=== PATIENT | female | born 1950 | race Caucasian/White ===

== ENCOUNTER 2017-07-23 14:21 | Outpatient (CLI) | payer BC ==
--- NOTE | 2017-07-23 17:20 | RAD ---
CERVICAL SPINE: 07/23/17 Four views. HISTORY: Cervical disc degeneration. Neck pain. Followup surgery. Anterior plate and screws transfix C6-7 with interbody implant. Posterior alignment is preserved. Th ere are mild degenerative changes at the other levels. No significant change from 06/02/17. IMPRESSION: Stable postoperative changes of cervical spine. POS: [facility]
== END 2017-07-23 14:22 | disposition home or self-care (01) ==
LOC: TBSIIMAG 14:21
PROVIDERS: ATTEND Neurological Surgery
DX: M50.30 Other cervical disc degeneration, unspecified cervical region (principal); Z98.1 Arthrodesis status
CPT/HCPCS: 72040

== ENCOUNTER 2017-08-11 04:25 | Emergency (ER) | payer BC, OTHER ==
[2017-08-11] MEDS ORDERED: Ondansetron HCl/PF 4 MG/2 ML Vial ONE (04:44)
[2017-08-11 05:00] LABS: #Lymphocytes 0.6 thou/uL (1.20-3.40); #Monocytes 0.4 thou/uL (0.11-0.59); #Neutrophils 15.6 thou/uL (1.40-6.50); %Basophils 0.1 % (0.0-1.0); %Eosinophils 0.3 % (0.0-10.0); %Lymphocytes 3.6 % (21.0-51.0); %Monocytes 2.6 % (0.0-10.0); Hematocrit 43.3 % (36.0-47.0); Mean Platelet Volume 7.2 fL (7.4-10.4); Red Blood Cell (RBC) Count 4.57 mill/uL (4.20-5.40); White Blood Cell (WBC) Count 16.7 thou/uL (4.8-10.8)
[2017-08-11 05:17] LABS: ALT (SGPT) 19 U/L (8-55); AST (SGOT) 21 U/L (5-34); Alkaline Phosphatase 105 U/L (40-150); Anion Gap 19 mmol/L (10-20); BUN (Urea Nitrogen) 18 mg/dL (9.8-20.1); Calc. Creatinine Clearance 0 mL/min (70-130); Calcium 9.9 mg/dL (7.8-10.44); Carbon Dioxide 20 mmol/L (23-31); Chloride 103 mmol/L (98-107); Estimated GFR-MDRD 72; Globulin 3.8 g/dL (2.4-3.5); Protein, Total 8.4 g/dL (6.0-8.3)
[2017-08-11 07:49] LABS: Bilirubin Negative (Negative); Blood, Urine Negative (Negative); Glucose, Urine (Dipstick) Negative (Negative); Ketone, Urine Negative (Negative); Nitrite Negative (Negative); Protein, Urine (Dipstick) Negative (Neg-Trace); Urobilinogen 0.2 mg/dL (0.2-1.0)
[2017-08-11] MEDS ORDERED: Acetaminophen 500 MG TAB ONE (09:02)
[2017-08-11] MEDS ORDERED: Ondansetron ODT 4 MG TAB ONE (09:10)
== END 2017-08-11 09:05 | disposition home or self-care (01) ==
LOC: ERS 04:25
DX: R11.2 Nausea with vomiting, unspecified (principal); R19.7 Diarrhea, unspecified
CPT/HCPCS: 36415; 80053; 81003; 85025; 93005; 96361; 96374; J2405; Q0162

== ENCOUNTER 2018-12-03 08:33 | Outpatient (CLI) | payer MEDICARE, BC, OTHER ==
--- NOTE | 2018-12-03 09:39 | RAD ---
CERVICAL SPINE FOUR VIEWS: Date: 12-03-18 Comparison: 07-23-17 History: Neck pain with numbness in the left hand, prior cervical spine fusion. FINDINGS: Images include frontal, lateral, open mouth odontoid view, and swimmer's lateral views. Anterior discectomy and fusion hardware noted at C6-7. Post-operative clips overlie the right aspect of the neck. Open mouth odontoid view demonstrates a normal appearing dens and C1-2 articulation. Mild degenerativ e change noted at the atlantoaxial interspace. Mild disc space narrowing and anterior osteophyte form ation noted at C4-5 and C5-6, similar when compared to prior imaging. No anterolisthesis or retrolist hesis. No prevertebral soft tissue swelling. IMPRESSION: Stable post-operative and degenerative changes of the cervical spine as described above. POS: [facility]
--- NOTE | 2018-12-03 12:14 | MRI ---
MRI CERVICAL SPINE WITHOUT CONTRAST: HISTORY: Cervical fusion at C6-C7. Cervical radiculopathy. COMPARISON: None. TECHNIQUE: Cervical spine MRI is performed without intravenous Gadolinium administration. Multisequential, mult iplanar imaging is performed. FINDINGS: Limited evaluation of C6 and C7 vertebral bodies due to metallic susceptibility artifact from fusion hardware. The remainder of the cervical vertebrae have appropriate T1 marrow signal intensity. No e vidence of fracture. No significant STIR hyperintensity to suggest vertebral body edema or ligamento us injury. Straightening of the cervical lordosis is likely positional. Visualized brain parenchyma , cervicomedullary junction, cervical cord, and the upper thoracic cord have a normal size and signal intensity. C2-C3: No significant central canal stenosis or foraminal narrowing. C3-C4: No significant central canal stenosis or foraminal narrowing. C4-C5: No significant central canal stenosis. Mild right foraminal narrowing due to uncovertebral a nd facet hypertrophy. The left foramen is patent. C5-C6: Broad-based disk bugle abuts the thecal sac. No significant central canal stenosis. Mild bi lateral foraminal narrowing due to uncovertebral hypertrophy. C6-C7: No significant central canal stenosis. Right neural foramen is patent. Mild left foraminal narrowing due to uncovertebral hypertrophy. C7-T1: No significant central canal stenosis or foraminal narrowing. IMPRESSION: Fusion changes at C6-C7. No significant central canal stenosis or foraminal narrowing. POS: [facility]
== END 2018-12-03 08:34 | disposition home or self-care (01) ==
LOC: TBSIIMAG 08:33
PROVIDERS: ATTEND Neurological Surgery
DX: M47.22 Other spondylosis with radiculopathy, cervical region (principal); Z98.1 Arthrodesis status
CPT/HCPCS: 72040; 72141

== ENCOUNTER 2022-04-18 11:00 | Outpatient (CLI) | payer MEDICARE, BC ==
[2022-04-18] MEDS ORDERED: Morphine 2 MG/ML VIAL ONE (13:07)
== END 2022-04-18 11:01 | disposition home or self-care (01) ==
LOC: NM 11:00
PROVIDERS: ATTEND Internal Medicine
DX: R11.2 Nausea with vomiting, unspecified (principal)
CPT/HCPCS: 78227; A9537; J2270